=== PATIENT | female | born 1955 | race Caucasian/White ===

== ENCOUNTER → 2019-06-29 | Outpatient (CLI) | payer MEDICARE, OTHER | LOC: MC.RAD 10:11 | DX: Z12.31 Encounter for screening mammogram for malignant neoplasm of breast (principal); N63.10 Unspecified lump in the right breast, unspecified quadrant; N63.20 Unspecified lump in the left breast, unspecified quadrant; R92.0 Mammographic microcalcification found on diagnostic imaging of breast ==

== ENCOUNTER → 2019-07-01 | Outpatient (CLI) | payer MEDICARE, OTHER | LOC: MC.RAD 13:54 | DX: N63.10 Unspecified lump in the right breast, unspecified quadrant (principal); N63.20 Unspecified lump in the left breast, unspecified quadrant; R92.0 Mammographic microcalcification found on diagnostic imaging of breast ==

== ENCOUNTER → 2019-07-14 | Outpatient (CLI) | payer MEDICARE, OTHER | LOC: MC.RAD 09:46 | DX: R92.0 Mammographic microcalcification found on diagnostic imaging of breast (principal); Z98.82 Breast implant status ==